=== PATIENT | male | born 1995 | race African-American/Black ===

== ENCOUNTER 2018-01-02 14:22 | Emergency (ER) | payer OTHER, BC | END 2018-01-02 14:39 | disposition home or self-care (01) | LOC: E/R 14:22 | DX: R05 Cough (principal); R19.15 Other abnormal bowel sounds; H61.21 Impacted cerumen, right ear | CPT/HCPCS: 99283; Z7502 ==

== ENCOUNTER 2018-01-20 14:22 | Emergency (ER) | payer OTHER | END 2018-01-20 15:30 | disposition home or self-care (01) | LOC: E/R 15:30 | DX: M25.512 Pain in left shoulder (principal) | CPT/HCPCS: 73000; 73030; 99283-25 ==

== ENCOUNTER 2018-04-29 12:15 | Emergency (ER) | payer OTHER | END 2018-04-29 13:45 | disposition home or self-care (01) | LOC: FTE 12:15 | DX: R14.0 Abdominal distension (gaseous) (principal) | CPT/HCPCS: 99283; Z7502 ==

== ENCOUNTER 2018-09-19 10:05 | Emergency (ER) | payer OTHER | END 2018-09-19 13:10 | disposition home or self-care (01) | LOC: FTE 10:05 | DX: R14.0 Abdominal distension (gaseous) (principal); R00.1 Bradycardia, unspecified | CPT/HCPCS: 93005; 99283-25 ==